=== PATIENT | female | born 1930 | race Caucasian/White ===

== ENCOUNTER → 2017-03-10 | Outpatient (CLI) | payer MEDICARE, BC ==
--- NOTE | 2017-03-10 13:58 | RAD ---
Abdominal ultrasound, 05/11/2016: History: Elevated liver enzymes The gallbladder is surgically absent. The common hepatic duct measures 5 mm, which is within normal limits. There is no evidence of a hepatic mass or intrahepatic bile duct dilatation. The visualized portions of the pancreas, spleen and both kidneys are unremarkable. There is atherosclerotic plaquing of the abdominal aorta without evidence of aneurysm. The inferior vena cava is unremarkable. No free fluid is evident in the abdomen. IMPRESSION: 1. Status post cholecystectomy. 2. No acute abdominal abnormality is detected.
== END | disposition home or self-care (01) ==
LOC: US 12:42
PROVIDERS: ATTEND Family Medicine
DX: I70.0 Atherosclerosis of aorta (principal); R74.8 Abnormal levels of other serum enzymes; Z90.49 Acquired absence of other specified parts of digestive tract
CPT/HCPCS: 76700

== ENCOUNTER 2018-03-12 13:43 | Inpatient (IN) | payer MEDICARE, BC ==
[~2018-03-12] VITALS: Ht 142.2 cm; Wt 47.6 kg
[2018-03-12] MEDS ORDERED: VALS160T3 PO (14:02)
[2018-03-12] MEDS ORDERED: TRAM50TA PO (14:02)
[2018-03-12] MEDS ORDERED: FURO40TA4 PO (14:02)
[2018-03-12] MEDS ORDERED: CHOL10003 PO (14:02)
[2018-03-12] MEDS ORDERED: METO25TA2 PO (14:02)
[2018-03-12] MEDS ORDERED: LEVO50TA5 PO (14:02)
[2018-03-12] MEDS ORDERED: ATOR20TA PO (14:02)
[2018-03-12] MEDS ORDERED: ESOM20CA PO (14:02)
[2018-03-12] MEDS ORDERED: LOSA25TA PO (14:02)
[2018-03-12 14:41] VITALS: BP 136/78
[2018-03-12] MEDS ORDERED: ACETAMINOPHEN 325 MG TABLET PO PRN (14:45)
[2018-03-12 14:55] LABS: BASO % 0 % (0-3); EOS # 0.2 x10^3/uL (0.0-0.7); EOS % 3 % (0-3); HEMATOCRIT 35.6 % (36.0-47.0); HEMOGLOBIN 11.9 g/dL (12.0-15.5); LYMPH # 1.8 x10^3/uL (1.0-4.8); LYMPH % 23 % (24-48); MEAN CORPUSCULAR HEMOGLOBIN 33 pg (25-35); MEAN CORPUSCULAR HGB CONC 33 g/dL (31-37); MEAN CORPUSCULAR VOLUME 100 fL (79-100); MONO # 0.8 x10^3/uL (0.0-1.1); MONO % 10 % (0-9); NEUT % 64 % (31-73); PLATELET COUNT 212 x10^3/uL (140-400); RED BLOOD COUNT 3.57 x10^6/uL (3.50-5.40); RED CELL DISTRIBUTION WIDTH 13.9 % (11.5-14.5); WHITE BLOOD COUNT 7.8 x10^3/uL (4.0-11.0)
[2018-03-12] MEDS ORDERED: VANCOMYCIN 1.25 GM in IV NORMAL SALINE 250ML 250 ML IV ONE (15:00)
[2018-03-12 15:20] VITALS: BP 144/84
[2018-03-12] MEDS: IV NORMAL SALINE 1,000ML 1,000 ML IV SCH (15:34)
[2018-03-12 15:45] LABS: ALBUMIN 2.9 g/dL (3.4-5.0); ALBUMIN/GLOBULIN RATIO 0.8 (1.0-1.7); CALCIUM 8.5 mg/dL (8.5-10.1); GFR 52.3; POTASSIUM 3.2 mmol/L (3.5-5.1); TOTAL BILIRUBIN 0.4 mg/dL (0.2-1.0); TOTAL PROTEIN 6.5 g/dL (6.4-8.2)
[2018-03-12] MEDS: VANCOMYCIN PER PHARMACY MC PRN (19:03)
[2018-03-12] MEDS ORDERED: IOHEXOL 300 MG/ML 75 ML VIAL. IV ONE (19:45)
[2018-03-12 19:51] VITALS: BP 111/66
[2018-03-12] MEDS: LACTOBACILLUS RHAMNOSUS GG 1 CAPSULE. PO SCH (21:03)
[2018-03-12] MEDS: METOPROLOL SUCC 24HR ER 25 MG TAB.ER.24H. PO SCH (21:03)
[2018-03-12] MEDS: ATORVASTATIN CALCIUM 20 MG TABLET PO SCH (21:03)
[2018-03-12] MEDS: traMADol 50 MG TABLET PO SCH (21:04)
[2018-03-12] MEDS: LOSARTAN 25 MG TABLET. PO SCH (21:04)
[2018-03-12] MEDS: HEPARIN for SUB-Q USE 5,000 UNIT/ML VIAL. SQ SCH (21:05)
[2018-03-12 21:12] LABS: BILIRUBIN,URINE NEG (NEG); CLARITY,URINE HAZY; COLOR,URINE YELLOW; GLUCOSE,URINE NEG (NEG); NITRITE,URINE NEG (NEG); UROBILINOGEN,URINE 0.2 mg/dL (0.2 mg/dL)
[2018-03-12 21:13] LABS: BACTERIA,URINE 0 /HPF (0-FEW); HYALINE CASTS, URINE FEW /HPF; SQUAMOUS EPITHELIAL CELL,UR MANY /LPF
--- NOTE | 2018-03-12 21:13 | RAD ---
Examination: CT angiography chest HISTORY: History of elevated d-dimer, weakness COMPARISON: None available Technique: Axial CT angiographic images of the chest were performed with IV contrast.: Sagittal 3-D MIP reformats are performed. Exposure: One or more of the following individualized dose reduction techniques were utilized for this examination: 1. Automated exposure control 2. Adjustment of the mA and/or kV according to patient size 3. Use of iterative reconstruction technique FINDINGS: The caliber of the aorta grossly appears unremarkable. Coronary artery calcifications identified. Mild aortic atherosclerosis. No evidence of filling defect identified in the main pulmonary arterial trunk and right and left main pulmonary arteries. The evaluation the distal segmental branches of the pulmonary arteries is limited on this examination. Faint airspace opacities identified in the right lower lobe of the lung likely atelectasis or infiltrate. No evidence of pleural effusion or pneumothorax. The visualized liver, spleen, adrenals grossly appears unremarkable. The visualized pancreas grossly appears unremarkable. Moderate degenerative changes thoracic spine. IMPRESSION: 1. Limited examination as majority of the contrast is within the aorta and not in the distal pulmonary arteries. No obvious central pulmonary embolism identified. 2. Coronary artery calcifications. 3. Faint airspace opacities identified in the right lower lobe lung likely atelectasis or infiltrate. Electronically signed by: Danny Rose MD (03/12/2018 9:09 PM) [facility]
[2018-03-12 22:50] VITALS: BP 147/77
[2018-03-13] MEDS: IV NORMAL SALINE 1,000ML 1,000 ML IV SCH ×2 (03:41→17:25)
[2018-03-13] MEDS: LEVOTHYROXINE 50 MCG TABLET PO SCH (05:25)
[2018-03-13] MEDS: HEPARIN for SUB-Q USE 5,000 UNIT/ML VIAL. SQ SCH ×3 (05:26→20:48)
[2018-03-13 05:35] VITALS: BP 118/66
[2018-03-13 06:21] LABS: BASO # 0.1 x10^3/uL (0.0-0.2); BASO % 2 % (0-3); EOS # 0.4 x10^3/uL (0.0-0.7); EOS % 7 % (0-3); HEMATOCRIT 32.7 % (36.0-47.0); HEMOGLOBIN 11.1 g/dL (12.0-15.5); LYMPH # 1.8 x10^3/uL (1.0-4.8); LYMPH % 37 % (24-48); MEAN CORPUSCULAR HEMOGLOBIN 34 pg (25-35); MEAN CORPUSCULAR HGB CONC 34 g/dL (31-37); MEAN CORPUSCULAR VOLUME 99 fL (79-100); MONO # 0.5 x10^3/uL (0.0-1.1); MONO % 10 % (0-9); NEUT # 2.2 x10^3uL (1.8-7.7); NEUT % 45 % (31-73); PLATELET COUNT 168 x10^3/uL (140-400); RED BLOOD COUNT 3.29 x10^6/uL (3.50-5.40); WHITE BLOOD COUNT 4.9 x10^3/uL (4.0-11.0)
[2018-03-13 06:34] LABS: CALCIUM 7.8 mg/dL (8.5-10.1); CREATININE 0.9 mg/dL (0.6-1.0); GFR 59.1; POTASSIUM 3.1 mmol/L (3.5-5.1)
[2018-03-13] MEDS: CHOLECALCIFEROL (VITAMIN D3) 1,000 UNIT TABLET PO SCH (08:22)
[2018-03-13] MEDS: LACTOBACILLUS RHAMNOSUS GG 1 CAPSULE. PO SCH ×2 (08:22→20:46)
[2018-03-13] MEDS: LOSARTAN 25 MG TABLET. PO SCH ×2 (08:22→20:46)
[2018-03-13] MEDS: LOSARTAN 50 MG TABLET. PO SCH ×2 (08:22→09:00)
[2018-03-13] MEDS: PANTOPRAZOLE 40 MG TABLET. PO SCH (08:23)
[2018-03-13] MEDS: traMADol 50 MG TABLET PO SCH ×2 (08:23→20:46)
[2018-03-13 10:37] VITALS: BP 112/64
[2018-03-13] MEDS: FUROSEMIDE 40 MG TABLET PO SCH (12:09)
[2018-03-13] MEDS ORDERED: ELECTROLYTE (NON-ICU) PROTOCOL MC PRN (13:00)
--- NOTE | 2018-03-13 14:18 | PN ---
DATE: SUBJECTIVE: An 87-year-old female here with a dog bite to the left lower leg with marked inflammation and swelling. The patient had shown some improvement with that here in the last day or so with IV vancomycin. ____ CTA did not demonstrate any type of blood clot; however, the patient will have a venous Doppler of the left leg since her D-dimer was elevated. The patient seems to be resting more comfortably now and will continue to be monitored more so. In any case, the patient is alert and oriented to baseline. She does have dementia. PHYSICAL EXAMINATION: VITAL SIGNS: Blood pressure 112/60, respiratory rate 20, pulse 64, afebrile. GENERAL: The patient is alert. LUNGS: Diminished, but clear. CARDIOVASCULAR: Regular sinus rhythm. ABDOMEN: Soft, nontender. EXTREMITIES: Left lower leg markedly swollen, erythematous, although the erythema has decreased from the line that the ____. JULIO CÉSAR ANGLIN MD DR: REBECA/michelle JOB#: [id number] / [id number]
[2018-03-13 14:35] VITALS: BP 125/69
[2018-03-13] MEDS ORDERED: VANCOMYCIN 750 MG in IV NORMAL SALINE 250ML 250 ML IV SCH (15:00)
--- NOTE | 2018-03-13 15:22 | RAD ---
Left lower extremity venous doppler ultrasound History: Left leg redness and swelling, scratched by dog Comparison: None Findings: Multiple grayscale, color, and duplex spectral analysis sonographic images were acquired of the left lower extremity veins to evaluate for the presence of DVT. There is normal phasicity. Normal compression, color-flow, and augmentation is demonstrated from the left common femoral to the popliteal veins. There is normal color flow of the proximal greater saphenous and profunda femoris veins. There is soft tissue swelling. Impression: 1. There is no evidence of deep venous thrombosis from the left common femoral to popliteal veins. Electronically signed by: Elmer Sampson MD (03/13/2018 3:19 PM) [id number]
[2018-03-13 18:30] VITALS: BP 148/68
[2018-03-13] MEDS: ATORVASTATIN CALCIUM 20 MG TABLET PO SCH (20:46)
[2018-03-13] MEDS: DICLOFENAC SODIUM 1% TOPICAL GEL 100GM TUBE. TP SCH (20:47)
[2018-03-13] MEDS: METOPROLOL SUCC 24HR ER 25 MG TAB.ER.24H. PO SCH (20:47)
[2018-03-13 23:55] VITALS: BP 114/55
[2018-03-14 05:58] VITALS: BP 147/68
[2018-03-14] MEDS: LEVOTHYROXINE 50 MCG TABLET PO SCH (06:28)
[2018-03-14] MEDS: HEPARIN for SUB-Q USE 5,000 UNIT/ML VIAL. SQ SCH ×3 (06:30→23:36)
[2018-03-14] MEDS: IV NORMAL SALINE 1,000ML 1,000 ML IV SCH (06:45)
[2018-03-14] MEDS: LOSARTAN 25 MG TABLET. PO SCH ×2 (08:32→20:34)
[2018-03-14] MEDS: traMADol 50 MG TABLET PO SCH ×2 (08:32→20:34)
[2018-03-14] MEDS: LACTOBACILLUS RHAMNOSUS GG 1 CAPSULE. PO SCH ×2 (08:32→20:34)
[2018-03-14] MEDS: CHOLECALCIFEROL (VITAMIN D3) 1,000 UNIT TABLET PO SCH (08:32)
[2018-03-14] MEDS: PANTOPRAZOLE 40 MG TABLET. PO SCH (08:32)
[2018-03-14] MEDS: LOSARTAN 50 MG TABLET. PO SCH (08:33)
[2018-03-14] MEDS: DICLOFENAC SODIUM 1% TOPICAL GEL 100GM TUBE. TP SCH ×2 (08:43→20:36)
[2018-03-14 11:10] VITALS: BP 121/56
[2018-03-14] MEDS: FUROSEMIDE 40 MG TABLET PO SCH (12:00)
--- NOTE | 2018-03-14 14:17 | PN ---
DATE: 03/14/2018 SUBJECTIVE: An 87-year-old female in with cellulitis of left lower leg. She is making good progress overall. The patient's lungs are diminished, but clear. CV exam Stable. Abdomen is soft. The left lower leg shows improvement with the IV antibiotics. Cultures have been negative. She will get a PICC line. She will probably be discharged to nursing; otherwise, the patient's blood pressure that of 120/50, respiratory rate 20, pulse 60, afebrile. The patient is alert and oriented. The patient otherwise, continued to be monitored carefully, make further evaluation. IMPRESSION: Cellulitis, left lower leg secondary to dog bite. JULIO CÉSAR ANGLIN MD DR: REBECA/michelle JOB#: [id number] / [id number]
[2018-03-14 14:46] LABS: VANC TR 13.3 mcg/mL (10.0-20.0)
--- NOTE | 2018-03-14 15:50 | RAD ---
PORTABLE CHEST 1V History: PICC placement Comparison: December 30, [address] exam March 12, 2018 Findings: 2 AP views of the chest are submitted. There is right upper extremity PICC with the tip in the region of mid to inferior aspect of the superior vena cava. There is no pneumothorax, new lobar consolidation, pleural fluid. Heart size is stable. There is a somewhat tortuous thoracic aorta. There is thoracolumbar scoliosis. Appearance of relative volume loss of the right hemithorax is stable compared with CT. There is gas distention of visualized stomach. Impression: 1. There is right upper extremity PICC with the tip in the superior vena cava. 2. There is gas distention of visualized stomach. Electronically signed by: Elmer Sampson MD (03/14/2018 3:46 PM) [id number]
[2018-03-14] MEDS: VANCOMYCIN PER PHARMACY MC PRN (15:53)
[2018-03-14] MEDS ORDERED: VANCOMYCIN 750 MG in IV NORMAL SALINE 250ML 250 ML IV SCH (18:00)
[2018-03-14 18:33] VITALS: BP 132/85
--- NOTE | 2018-03-14 19:39 | RAD ---
Right upper summary ultrasound dated 03/14/2018. No comparison available. Clinical data indication: Right upper arm PICC placement, now with bleeding. Evaluate for hematoma. FINDINGS: Sonographic imaging was performed over the area of bleeding at the upper right arm. The PICC is identified anteriorly, possibly within the cephalic vein. There is no fluid collection or mass adjacent to the PICC. The localized venous structures are compressible with positive color flow. IMPRESSION: No evidence of right upper arm hematoma. Electronically signed by: Dustin Chavez MD (03/14/2018 7:35 PM) [facility]
[2018-03-14] MEDS: ATORVASTATIN CALCIUM 20 MG TABLET PO SCH (20:34)
[2018-03-14] MEDS: METOPROLOL SUCC 24HR ER 25 MG TAB.ER.24H. PO SCH (20:35)
[2018-03-15] MEDS: LEVOTHYROXINE 50 MCG TABLET PO SCH (06:20)
[2018-03-15] MEDS: HEPARIN for SUB-Q USE 5,000 UNIT/ML VIAL. SQ SCH ×2 (06:20→14:17)
[2018-03-15 06:30] VITALS: BP 145/69
[2018-03-15] MEDS: LOSARTAN 25 MG TABLET. PO SCH (08:11)
[2018-03-15] MEDS: PANTOPRAZOLE 40 MG TABLET. PO SCH (08:11)
[2018-03-15] MEDS: DICLOFENAC SODIUM 1% TOPICAL GEL 100GM TUBE. TP SCH (08:11)
[2018-03-15] MEDS: LACTOBACILLUS RHAMNOSUS GG 1 CAPSULE. PO SCH (08:11)
[2018-03-15] MEDS: traMADol 50 MG TABLET PO SCH (08:11)
[2018-03-15] MEDS: LOSARTAN 50 MG TABLET. PO SCH (08:15)
--- NOTE | 2018-03-15 09:48 | DS ---
DATE OF DISCHARGE: 03/15/2018 HOSPITAL COURSE: The patient came with a dog bite to her left lower leg with cellulitis. The patient made good progress. She was placed on IV vancomycin and PICC line. Her potassium was adjusted up and down. Her white count was basically unremarkable. The patient made good progress during the rest of her hospitalization. She will continue to the skilled unit for such for IV antibiotic and also physical and occupational therapy. A PICC line in place, no DVT in the legs, although she had positive D-dimer. In any case cellulitis to the left lower leg secondary to a dog bite hypokalemia, [id number] protein malnutrition. JULIO CÉSAR ANGLIN MD DR: REBECA/michelle JOB#: [id number] / [id number]
[2018-03-15 10:41] VITALS: BP 170/65
[2018-03-15] MEDS: CHOLECALCIFEROL (VITAMIN D3) 1,000 UNIT TABLET PO SCH (11:28)
[2018-03-15] MEDS: FUROSEMIDE 40 MG TABLET PO SCH (11:30)
[2018-03-15 12:06] VITALS: BP 120/60
[2018-03-15] MEDS ORDERED: LACT1CAP19 PO (14:42)
[2018-03-15] MEDS ORDERED: VANC750F2 IV (14:42)
[2018-03-15] MEDS ORDERED: DICL100G18 TP (14:44)
== END 2018-03-15 15:24 | DRG 603 ==
LOC: 1 SOUTH 13:53
PROVIDERS: ADMIT Family Medicine; ATTEND Family Medicine
PROC: 02HV33Z Insertion of Infusion Device into Superior Vena Cava, Percutaneous Approach (ICD-10-PCS; principal; 2018-03-12)
DX: L03.116 Cellulitis of left lower limb (principal); E44.0 Moderate protein-calorie malnutrition; E87.6 Hypokalemia; F03.90 Unspecified dementia, unspecified severity, without behavioral disturbance, psychotic disturbance, mood disturbance, and anxiety; S81.852A Open bite, left lower leg, initial encounter; E78.5 Hyperlipidemia, unspecified; I10 Essential (primary) hypertension; K21.9 Gastro-esophageal reflux disease without esophagitis; M06.9 Rheumatoid arthritis, unspecified; W54.0XXA Bitten by dog, initial encounter; Z79.899 Other long term (current) drug therapy; Y93.89 Activity, other specified; Y92.89 Other specified places as the place of occurrence of the external cause; Y99.8 Other external cause status; Z87.01 Personal history of pneumonia (recurrent); Z82.49 Family history of ischemic heart disease and other diseases of the circulatory system; Z88.8 Allergy status to other drugs, medicaments and biological substances; Z68.23 Body mass index [BMI] 23.0-23.9, adult
CPT/HCPCS: 36415; 71045; 71275; 76881; 80048; 80053; 80202; 81001; 82947; 83605; 84132; 85025; 85379; 87040; 87070; 87086; 87186; 93971; J1644; J3370; J7050; Q9967; 97116; J7030